=== PATIENT | female | born 1940 | race Two or more races ===

== ENCOUNTER 2025-05-11 13:03 | Emergency (ER) | payer MEDICARE, MEDICAID, SELFPAY ==
[2025-05-11 13:20] VITALS: BP 103/61; PULSE 98; RESP 18; TEMP 36.8; O2SAT 95; BMI 31.3
--- NOTE | 2025-05-11 13:26 | XR_ITS ---
Examination: CT brain head without contrast. 2-D sagittal coronal reconstructions Date and time of exam: May 11, 2025, 1345 hours INDICATIONS: Ground-level fall today with injury to the head, head pain CTDI: vol (mGy): 50 DLP: (mGycm): 990 Technique: Multiple CT axial sections of the brain have been obtained, 5 mm slice thickness. Contrast has not been administered. 2-D sagittal, coronal reconstructions have been obtained Low dose protocols were performed. One or more of the following dose reduction techniques were used; automated exposure control, adjustment of the mA and/or KV according to patient size, use of iterative reconstruction technique. Findings: No significant ventricular enlargement. Intra-axial or extra-axial hemorrhage density is not seen. No mass effect or midline shift Basal cisterns are not remarkable. Fourth ventricle is midline. Cranial vault intact. Impression: Negative for acute hemorrhage, mass effect or midline shift
--- NOTE | 2025-05-11 13:26 | XR_ITS ---
EXAMINATION: Right elbow 2 views TECHNIQUE: AP lateral right elbow 2 views Date and time: May 11, 2025, 1337 hours INDICATIONS: Patient fell today with injury to the elbow, elbow pain. FINDINGS: No fracture or dislocation No foreign body IMPRESSION: No fracture or dislocation
--- NOTE | 2025-05-11 13:26 | XR_ITS ---
EXAMINATION: Right femur 2 views TECHNIQUE: AP lateral right femur 2 views DATE: : May 11, 2025, 1353 hours INDICATIONS: Patient fell today with injury of the right femur, right femur pain. FINDINGS: No acute hip fracture or dislocation Shaft of the femur intact IMPRESSION: No acute fracture
--- NOTE | 2025-05-11 13:26 | XR_ITS ---
Examination: Right hip AP, lateral, AP pelvis 3 views Technique: Hip AP lateral, AP pelvis, 3 views Exam date and time: May 11, 2025, 1335 hours INDICATIONS: Patient fell today with injury to the right hip, right hip pain. FINDINGS: Acute appearing fractures right superior inferior pubic rami Right hip appears intact with no hip dislocation IMPRESSION: Acute appearing fractures right superior and inferior pubic rami without significant displacement.
[2025-05-11] MEDS: HYDROcodone/APAP 5/325 TABLET 1 TAB PO ×2 (14:14→15:56)
--- NOTE | 2025-05-11 14:24 | XR_ITS ---
Examination: CT pelvis without intravenous contrast. 2-D sagittal and coronal reconstructions. Date and time of exam: May 11, 2025, 1433 hours INDICATION: Patient fell today with injury to the pelvis, pelvic pain CTDI: vol (mGy) : 11.2 DLP: (mGycm) : 373 Technique: Multiple 3 mm axial sections of the pelvis have been obtained with the 64 slice high resolution scanner. 2-D sagittal and coronal reconstructions. Low dose protocols were performed. One or more of the following dose reduction techniques were used; automated exposure control, adjustment of the mA and/or KV according to patient size, use of iterative reconstruction technique. Findings: Severe osteopenia Sacral segments intact Iliac bones acetabular regions intact Acute fractures right superior and inferior pubic rami with no major offset Hips appear intact Right-sided pelvic hematoma, axial image 90, measuring 7.4 x 2.8 IMPRESSION: Acute fractures right superior and inferior pubic rami Adjacent right-sided pelvic hematoma 7.4 x 2.8 cm Hips intact
--- NOTE | 2025-05-11 14:24 | XR_ITS ---
Examination: CT lumbar spine, without contrast. 2-D sagittal reconstructions. 2-D coronal reconstructions. 3-D reconstructions. Date and time of exam: May 11, 2025, 1433 hours INDICATIONS: Patient fell today with injury to the lower back, lower back pain CTDI: vol (mGy): 32.7 DLP: (mGycm): 1057 Technique: Multiple 1.25 mm axial sections of the lumbar spine without intravenous contrast have been obtained. 2-D sagittal and coronal reconstructions have been obtained. 3-D reconstructions have been obtained. Low dose protocols were performed. One or more of the following dose reduction techniques were used; automated exposure control, adjustment of the mA and/or KV according to patient size, use of iterative reconstruction technique. Findings: Severe osteopenia Severe chronic osteoporotic compression T10, and mild osteoporotic compression L1 Advanced disc narrowing L4-L5 No acute lumbar fracture L4-L5 moderate to severe overall acquired spinal stenosis, axial image 97, 4 mm central lumbar disc bulge, facet arthropathy and thickening of ligamentum flavum with mild bilateral L4 ganglionic compression IMPRESSION: Severe osteopenia No acute fracture Advanced degenerative disc disease L4-L5 L4-L5 moderate to severe overall acquired spinal stenosis
--- NOTE | 2025-05-11 14:26 | PD.EDRME ---
Rapid Medical Screening Exam RME Arrival date/time: 05/11/25 13:03 This is a case of 84-year-old female with no medical this is a case of [id number] history of atrial fibrillation and heart disease on Eliquis came in in the emergency room due to fall incident patient deniesHead neck chest or abdominal injury but currently complaining of right elbow right hip right thigh PainNo loss of conscious no shortness of breath no chest pain Chief Complaint: Extremity Injury, Lower Time Seen by Provider: 05/11/25 13:14 Vital signs: Vital Signs Temperature 98.2 F 05/11/25 13:20 Pulse Rate 98 05/11/25 13:20 Respiratory Rate 18 05/11/25 13:20 Blood Pressure 103/61 05/11/25 13:20 Pulse Oximetry (%) 95 05/11/25 13:20 Oxygen Delivery Method Room Air 05/11/25 13:20 Exam: Neurological exam is normal awake alert oriented x 4 Ecchymosis and tenderness swelling on the right elbow right hip and right femur Clinical Impression: Fall pelvic fracture
[2025-05-11 14:55] LABS: Basophils # (Auto) 0.0 Thou/mm3 (0.0-0.2); Basophils % (Auto) 0 % (0-2.5); Eosinophils # (Auto) 0.0 Thou/mm3 (0.0-0.5); Eosinophils % (Auto) 0 % (0-10); Hematocrit 34.5 % (36.0-46.0); Hemoglobin 11.5 g/dL (12.0-16.0); Immature Granulocytes Auto 0.06 Thou/mm3 (0.00-0.00); Lymphocytes # (Auto) 2.0 Thou/mm3 (1.0-4.8); Lymphocytes % (Auto) 14 % (10-50); Mean Corpuscular HGB Conc 33.3 g/dl (31.0-37.0); Mean Corpuscular Hemoglobin 28.4 pg (25.0-35.0); Mean Corpuscular Volume 85 fL (80-100); Monocytes # (Auto) 1.0 Thou/mm3 (0.0-0.8); Monocytes % (Auto) 7 % (0-12); Neutrophils # (Auto) 11.0 Thou/mm3 (1.8-7.7); Neutrophils % (Auto) 78 % (37-80); Nucleated Red Blood Cell # 0.00 Thou/mm3 (0.00-0.00); Nucleated Red Blood Cell % 0 /100 WBC (0); Platelet Count 191 Thou/mm3 (140-440); RDW Standard Deviation 38.8 fL (36.4-46.3); Red Blood Count 4.05 Miln/mm3 (4.00-5.20); White Blood Count 14.1 Thou/mm3 (3.6-11.0)
[2025-05-11 15:13] LABS: Alanine Aminotransferase 28 U/L (10-49); Albumin, Serum 4.6 gm/dL (3.4-4.8); Albumin/Globulin Ratio 1.4 (1.2-2.2); Alkaline Phosphatase 101 U/L (46-116); Anion Gap 9 (7-16); Aspartate Amino Transferase 36 U/L (0-34); BUN/Creatinine Ratio 25 Ratio (12-20); Bilirubin,Total 1.1 mg/dL (0.3-1.2); Blood Urea Nitrogen 37 mg/dL (9-23); Calcium 10.0 mg/dL (8.3-10.6); Calcium (Corrected) 10.0 mg/dL (8.5-10.1); Carbon Dioxide 26.8 mMol/L (20.0-31.0); Chloride 103 mMol/L (98-107); Creatinine (Component) 1.5 mg/dL (0.6-1.3); Estimated Creatinine Clearance 31.1 mL/min (>60); Globulin 3.4 gm/dL (2.3-3.5); Glucose 152 mg/dL (74-106); Osmolality,Calculated 289 (275-295); Potassium 4.9 mMol/L (3.4-5.1); Sodium 139 mMol/L (136-145); Total Protein 8.0 gm/dL (5.7-8.2); eGFR 34 See Note
--- NOTE | 2025-05-11 15:26 | EDNOTE_ITS ---
<Statement entered by Barbara Guillermo MD - 05/22/25 06:32> As co-signing physician, I was present and available for consult prn. I concur with the plan and care as documented by the midlevel provider. ED General RME/HPI General Chief complaint: Extremity Injury, Lower Stated complaint: FALL, PAIN IN R) LEG Time Seen by Provider: 05/11/25 13:14 Arrival date/time: 05/11/25 13:03 CC: Right hip pain HPI patient fell yesterday after tripping on a towel. Patient is on Eliquis secondary to A-fib. Patient denies LOC or LOC nausea vomiting painful urination altered mentation or loss of consciousness. Patient has minimal walking since the fall secondary to pain in the hip currently when laying still the pain is a 1-2 and when moving the hip is a 5-6. Patient has no other complaints. RME / HPI RME / HPI narrative: 05/11/25 13:03 This is a case of 84-year-old female with no medical this is a case of [id number] history of atrial fibrillation and heart disease on Eliquis came in in the emergency room due to fall incident patient deniesHead neck chest or abdominal injury but currently complaining of right elbow right hip right thigh PainNo loss of conscious no shortness of breath no chest pain Exam: Neurological exam is normal awake alert oriented x 4 Ecchymosis and tenderness swelling on the right elbow right hip and right femur Impression: Fall pelvic fracture Related Data Home Medications ?Medication ?Instructions ?Recorded ?Confirmed timolol 0.5 % eye drops 1 drp ophthalmic (eye) BID 0 07/03/18 08/09/22 lisinopril 20 mg tablet 20 mg PO BID 04/20/19 acetaminophen 500 mg tablet 500 mg PO Q6H PRN Pain 08/0208/09/22 (Tylenol Extra Strength) apixaban 2.5 mg tablet (Eliquis) 2.5 mg PO BID 3 08/09/22 Held on 08/10/22. Instructions: Resume on 08/12/22. May resume Eliquis on Saturday carvedilol 3.125 mg tablet 3.125 mg PO BID 08/09/22 cyclosporine 0.05 % eye drops in a 1 drp ophthalmic (e ye) Q12H 08/09/22 08/09/22 dropperette (Restasis) hydrochlorothiazide 12.5 mg tablet 12.5 mg PO QAM 08/0208/09/22 hydrocodone 10 mg-acetaminophen 1 tab PO Q6H PRN Pain 08/09/22 08/09/22 325 mg tablet Previous Rx's ?Medication ?Instructions ?Recorded acetaminophen 500 mg tablet 1,000 mg (2 x 500 mg) PO Q 8HR PRN 05/11/25 pain #20 tabs Allergies Allergy/AdvReac Type Severity Reaction Status Date / Time No Known Allergies Allergy Verified 05/11/25 13:06 Review of Systems Review of Systems Narrative Review of Systems: GEN: No fever, no chills, no weight loss EYES: No discharge, no visual changes, no pain HEENT: No ear pain, no congestion, no sore throat PULM: No shortness of breath, no cough, no congestion CV: No chest pain, no dyspnea on exertion, no palpitations GI: No nausea, no vomiting, no diarrhea, no pain, no constipation : No frequency, no urgency, no dysuria MUSC/SKEL: + joint pain, no back pain SKIN: No rash PSYCH: No hallucinations, no depression HEME/LYMPH: No easy bleeding or bruising tendencies NEURO: No weakness, no headache Past Medical History Past Medical History NEUROLOGIC: Positive Neurological Disorders (VERTIGO); Negative Seizures CARDIAC: Positive Cardiac Disorders, Atrial Fibrillation and Hypertension; Negative Congestive Heart Failure RESPIRATORY: Negative Chronic Obstructive Pulmonary Disease (COPD) GASTROINTESTINAL: Positive Gastrointestinal Disorders and Gall Bladder Disease; Negative Colorectal Cancer GENITOURINARY: Negative Genitourinary Disorders or Renal Disease REPRODUCTIVE: Negative Breast Cancer MUSCULOSKELETAL: Positive Musculoskeletal Disorders, Osteoporosis and Fractures (LEFT WRIST); Negative Bone Cancer ENT: Positive Cataracts (BILATERAL) and Deafness (RIGHT) ENDOCRINE: Negative Endocrine Disorders, Diabetes Mellitus Type 1 or Diabetes Mellitus Type 2 HEMATOLOGIC: Negative Blood Disorders PSYCHO/SOCIAL: Positive Anxiety OTHER HISTORY: Negative Hospitalization, Autoimmune Disease, Down Syndrome, Developmental Delay, Shingles, Falls, Blood Transfusions, Anesthesia Reactions, MRSA, Vancomycin-Resistant Enterococci, Cancer, Breast Cancer, Cervical Cancer, Colorectal Cancer, Lung Cancer or Ovarian Cancer Family History FAMILY HISTORY: Positive Family Cardiac Disorders (HTN); Negative Family Psychiatric Problems, Family Respiratory Disorders, Family Gastrointestinal Problems, Family Cancer, Family Surgery or Family Anesthesia Reaction Surgical History SURGICAL: Positive Open Reduction Internal Fixation (LEFT WRIST); Negative Abdominal Surgery Social History SMOKING STATUS: Never smoker SUBSTANCE USE: does not use ED Exam Narrative Physical exam: [General: Obese in moderate discomfort but not in any acute distress Head normocephalic, no step-offs hematoma induration ulceration or depressions. HEENT: Eyes pupils are PERRLA EOMs are intact no entrapment mouth [place] moist membranes uvula is midline swallow symmetrical phonation is normal no facial asymmetry or bogginess. No raccoon's eyes or peralta signs. All other subsystems of HEENT are within acceptable limits Neck is supple nontender full range of motion, flexion extension and rotation cleared via Nexus criteria. Chest equal chest rise nontender to palpation Respiratory: Clear to auscultation no wheezes crackles or rubs CV: Rate rhythm is regular no murmurs rubs or clicks Abdomen is distended secondary to body habitus soft nontender no masses positive bowel sounds all 4 quadrants Back: No CVA tenderness no spinous process tenderness from cervical spine thoracic and lumbar spine Skin: Intact no petechiae rash induration ulceration or crepitus Extremities: Right hip pain with flexion of the knee. No pain with palpation to the pelvis or femoral head. However pain with palpation to the right pubis mons. Moving all other extremities against resistance cap refill less than 2 seconds neurosensory intact Neuro: Awake alert oriented x3 Glascow coma 15 no focal deficits] Course Course Course Narrative: After lengthy discussion with the daughter and the patient she wants to go home as does not want to be pain manage. Patient will follow-up with Dr. Gallagher for additional pain management. Will list Dr. Stringer [facility] for follow-up as necessary. Daughter was advised if there is a worsening of pain in spite of the medications patient is to return the emergency room for reevaluation. There is also noted that there is a small hematoma next to the fracture itself. Quality Measures none Orders Category Date Time Status CT head/brain wo con Stat Exams 05/11/25 13:[address] lumbar spine wo con Stat Exams 05/11/25 14:[address] pelvis wo con Stat Exams 05/11/25 14:24 Completed XR elbow RT 2V Stat Exams 05/11/25 13:26 Completed XR femur RT 2V Stat Exams 05/11/25 13:26 Completed XR hip RT w pelvis 2-3V Stat Exams 05/11/25 13:26 Completed CBC Stat Lab 05/11/25 14:50 Completed CMP [Comprehensive Metabolic Panel] Stat Lab 05/11/25 14:50 Completed PTT [Partial Thromboplastin Time] Stat Lab 05/11/25 14:50 Received Prothrombin Time with INR Stat Lab 05/11/25 14:50 Received HYDROcodone*/APAP 5/325 [Calvin 5/325] Med 05/11/25 13:26 Discontinued 1 tab PO X1 ONE Vital Signs Vital signs: Vital Signs Temperature 98.2 F 05/11/25 13:20 Pulse Rate 98 05/11/25 13:20 Respiratory Rate 18 05/11/25 13:20 Blood Pressure 103/61 05/11/25 13:20 Pulse Oximetry (%) 95 05/11/25 13:20 Oxygen Delivery Method Room Air 05/11/25 13:20 Discharge Plan Plan Patient Disposition: HOME (Self Care) Patient condition on transfer: Stable Prescriptions/Referrals Prescriptions/Med Rec: New acetaminophen 500 mg tablet 1,000 mg PO Q8HR PRN (Reason: pain) Qty: 20 0RF No Action timolol 0.5 % Drops 1 drp OPHTHALMIC (EYE) BID Patient Comments: 1 drop both eyes lisinopril 20 mg Tablet 20 mg PO BID hydrocodone-acetaminophen 10-325 mg Tablet 1 tab PO Q6H PRN (Reason: Pain) acetaminophen [Tylenol Extra Strength] 500 mg Tablet 500 mg PO Q6H PRN (Reason: Pain) carvedilol 3.125 mg Tablet 3.125 mg PO BID Rx Instructions: must administer with a meal/food cyclosporine [Restasis] 0.05 % Dropperette 1 drp OPHTHALMIC (EYE) Q12H hydrochlorothiazide 12.5 mg Tablet 12.5 mg PO QAM Eliquis 2.5 mg Tablet 2.5 mg PO BID Referrals: Antonia Gallagher PA-C [Primary Care Provider, Family Practice] - In 1 week Problem List Clinical Impression: Closed fracture of right superior pubic ramus, Fracture of right inferior pubic ramus Patient/Caregiver Discharge Instructions Education Materials: [facility], ED Pelvic Fracture Print Language: Macedonian Stand Alone Forms: Arleen Award Info., Patient Portal Info Letter PA/INDUSTRIAL TECH INSTRUCTOR Supervising Physician PA/INDUSTRIAL TECH INSTRUCTOR Supervising Physician: Sudhakar Hendrix ENP MDM Clinical Information Provided by: patient and family Medical Records reviewed [facility] Meds/Rx considered, not ordered None Labs/Rad/Tests considered, not ordered None Chronic Illness/Social Conditions Explain: A-fib hypertension Labs Labs: interpreted by me Lab(s) Interpretation(s): CBC shows a mild leukocytosis of 14.1 H&H of 11.5 and 34.5 respectively no thrombocytopenia CMP shows no significant electrolyte imbalances BUN of 31 creatinine of 1.5 glucose of 152 T. bili is normal AST 36 no other transaminitis. Imaging Imaging interpretation: interpreted by mt Imaging Interpretation(s): CT pelvis shows superior inferior ramus fracture Lumbar C-spine shows no acute fracture malalignment or dislocation Hip and pelvis x-ray shows right superior inferior ramus fracture CT head is negative for any acute finding CT femur is negative for any acute fracture. Medication Administration(s) none Medication Administration History Discontinued Medications Hydrocodone Bitart/Acetaminophen (Hydrocodone/Apap 5/325 Tablet) 1 tab PO X1 ONE Stop: 05/11/25 13:27 Last Admin: 05/11/25 14:14 Dose: 1 tab Documented By: Diagnosis Differential Diagnosis ED Complaint MDM: Femoral neck fracture intratrochanteric fracture superior inferior ramus fr
[2025-05-11 15:31] LABS: INR 1.1 (0.9-1.3); Partial Thromboplastin Time 27.2 Seconds (22.0-36.0); Prothrombin Time 11.4 Seconds (9.0-12.2)
== END 2025-05-11 16:26 | disposition home or self-care (01) ==
PROVIDERS: Nurse Practitioner Family; Emergency Provider Emergency Medicine; PCP Physician Assistant
DX: S32.591A Other specified fracture of right pubis, initial encounter for closed fracture (principal); S50.01XA Contusion of right elbow, initial encounter; S70.01XA Contusion of right hip, initial encounter; S70.11XA Contusion of right thigh, initial encounter; S09.90XA Unspecified injury of head, initial encounter; S39.92XA Unspecified injury of lower back, initial encounter; D72.829 Elevated white blood cell count, unspecified; W01.0XXA Fall on same level from slipping, tripping and stumbling without subsequent striking against object, initial encounter
CPT/HCPCS: 36415; 70450; 72131; 72192; 73070; 73502; 73552; 80053; 85025; 85610; 85730; 99283; A9270

== ENCOUNTER → 2025-05-19 | Outpatient (CLI) | payer MEDICARE, MEDICAID, SELFPAY ==
--- NOTE | 2025-05-19 14:40 | XR_ITS ---
Examination: CT pelvis without intravenous contrast. 2-D sagittal and coronal reconstructions. Date and time of exam: 05/19/2025 at 2:57 p.m. Clinical indication: 1 pelvic pain status post traumatic fall 9 days ago CTDI: vol (mGy) : 9.93 DLP: (mGycm) : 354 Technique: Multiple 3 mm axial sections of the pelvis have been obtained with the 64 slice high resolution scanner. 2-D sagittal and coronal reconstructions. Low dose protocols were performed. One or more of the following dose reduction techniques were used; automated exposure control, adjustment of the mA and/or KV according to patient size, use of iterative reconstruction technique. Findings: There is a large oval soft tissue hematoma in the right side of the pelvis situated somewhat anteriorly, indenting the right side of the urinary bladder. On axial image 94 this hematoma measures 3.3 x 7.9 cm in its transverse and anteroposterior dimensions previous dimensions four 2.8 x 7.4 cm. Farther caudad, this hematoma is slightly larger than on the prior study, its AP and transverse dimensions have increased from 7.7 x 3.0 cm on the prior study, to 8.0 x 3.2 cm on today's exam. However on the previous comparison CT this hematoma also extended anterosuperiorly just behind the anterior wall of the lower abdomen. This portion of the hematoma has completely resolved. The previous nondisplaced fractures of the right superior and inferior pubic rami have not changed all, there is no angulation or displacement. Major complete degenerative disc space narrowing with vacuum phenomenon and surrounding osteophyte formation is noted at L4-5 in the lower lumbar spine, this degenerative disc space narrowing is worse on the left side. These findings are stable and unchanged IMPRESSION: 1. There is been no change in the appearance position or alignment of the 2 pelvic fractures involving the anterior and posterior pubic rami in the right hemipelvis. No other fractures are seen 2. A portion of the pelvic hematoma along the lateral sidewall of the lower pelvis has increased in size very slightly since the previous study. However an extension of this hematoma directed anterosuperiorly which was present on the previous exam, has completely returned to normal. Hence there is really not been any major interval change.
--- NOTE | 2025-05-19 14:40 | XR_ITS ---
Examination: Ribs, right, unilateral 4 views, including AP sitting chest TECHNIQUE: AP sitting chest, AP RPO LPO right ribs 4 views Exam date and time: May 19, 2025, 1507 hours INDICATIONS: Anterior right rib pain after falling 9 days ago Findings: Prominent left superior mediastinum again noted, recommend ultrasound thyroid bed follow-up Calcified left apical mass stable compared with 2019 chest x-ray No pneumothorax Mild prominence left ventricle Moderate osteopenia No acute rib fractures IMPRESSION: No pneumothorax pulmonary contusion or hemothorax No acute right rib fractures
== END | disposition home or self-care (01) ==
PROVIDERS: PCP Physician Assistant; Referring Provider Physician Assistant; Visit Provider Physician Assistant
DX: S29.9XXA Unspecified injury of thorax, initial encounter (principal); S30.0XXA Contusion of lower back and pelvis, initial encounter; S32.9XXA Fracture of unspecified parts of lumbosacral spine and pelvis, initial encounter for closed fracture; W19.XXXA Unspecified fall, initial encounter
CPT/HCPCS: 71100; 72192